=== PATIENT | female | born 1975 | race Two or more races ===

== ENCOUNTER 2019-01-22 11:16 | Outpatient (CLI) | payer BC | END 2019-01-22 23:59 | disposition home or self-care (01) | LOC: STAR 11:16 | PROVIDERS: ATTEND Student in an Organized Health Care Education/Training Program | DX: Z01.818 Encounter for other preprocedural examination (principal); N20.9 Urinary calculus, unspecified | CPT/HCPCS: 81001; 87086 ==

== ENCOUNTER 2019-01-27 11:36 | Day surgery (SDC) | payer BC ==
[~2019-01-27] VITALS: Ht 149.9 cm; Wt 55.3 kg
[2019-01-27 12:41] VITALS: BP 113/79
== END 2019-01-27 22:33 | disposition home or self-care (01) ==
LOC: SDC 11:36 → MERGE 13:00 → 4NOR 22:16 → SDC 22:33
PROVIDERS: ATTEND Student in an Organized Health Care Education/Training Program
DX: N20.0 Calculus of kidney (principal); Z98.51 Tubal ligation status; Z98.890 Other specified postprocedural states; Z88.0 Allergy status to penicillin
CPT/HCPCS: 52356; 81025; 82360; 88300; C1769; C2617; J0690; J1100; J1885; J2250; J2405; J2704; J2710; J3010; J7120; Q9967; 74420; G0378